=== PATIENT | female | born 1945 | race Caucasian/White ===

== ENCOUNTER → 2023-10-16 13:07 | Outpatient (REF) | payer MEDICARE, OTHER, SELFPAY | LOC: WDC 13:07 | PROVIDERS: ATTENDING PHYSICIAN Family Medicine | DX: Z12.31 Encounter for screening mammogram for malignant neoplasm of breast (principal) | CPT/HCPCS: 77063; 77067 ==

== ENCOUNTER → 2023-11-27 12:06 | Outpatient (REF) | payer MEDICARE, OTHER, SELFPAY ==
[2023-11-27 15:42] LABS: Urine Albumin Negative (Neg - Trace); Urine Bilirubin Negative (Negative); Urine Character Clear (Clear); Urine Color Yellow; Urine Glucose Negative (Negative); Urine Ketone Negative (Negative); Urine Leukocyte Negative (Negative); Urine Nitrite Negative (Negative); Urine Occult Blood Negative (Negative); Urine Specific Gravity 1.015 (<1.030); Urine Urobilinogen Negative (Neg - 1+)
[2023-11-27 15:48] LABS: % Basophils 1.1 % (0-2); % Eosinophils 2.7 % (0-6); % Immature Granulocytes 0.2 % (0-0.5); % Lymphocytes 22.3 % (20.5-51.1); % Monocytes 8.1 % (1.7-9.3); % Neutrophils 65.6 % (42.2-75.2); Absolute Basophils 0.1 10^3/uL (0-0.2); Absolute Eosinophils 0.2 10^3/uL (0-0.7); Absolute Lymphocytes 1.2 10^3/uL (1.2-3.4); Absolute Monocytes 0.5 10^3/uL (0.1-0.6); Absolute Neutrophils 3.6 10^3/uL (1.4-6.5); Hematocrit 42.5 % (37.0-47.0); Hemoglobin 13.8 g/dL (12.0-16.0); Mean Corp Hgb Conc. 32.5 g/dL (33.0-37.0); Mean Corpuscular Hgb 29.5 pg (27.0-31.0); Mean Corpuscular Volume 90.8 fL (81.0-99.0); Mean Platelet Volume 9.4 fL (7.4-10.4); Nucleated Red Blood Cells % 0 %; Platelet Count 268 10^3/uL (130-400); Red Blood Cell Count 4.68 10^6/uL (4.20-5.40); Red Cell Dist. Width 12.8 % (11.5-14.5); White Blood Cell Count 5.6 10^3/uL (4.8-10.8)
[2023-11-27 15:54] LABS: ALT (SGPT) 27 U/L (0-35); AST (SGOT) 36 U/L (14-36); Albumin 4.1 g/dl (3.5-5.0); Alkaline Phosphatase 69 U/L (38-126); Blood Urea Nitrogen 21 mg/dl (7-17); Carbon Dioxide 26 mmol/L (22-30); Chloride 103 mmol/L (98-107); Glucose 96 mg/dl (70-99); HDL Cholesterol 77 mg/dl; LDL Cholesterol, Calculated 73 mg/dl; Potassium 4.1 mmol/L (3.5-5.1); Sodium 134 mmol/L (135-145); Total Bilirubin 0.6 mg/dl (0.2-1.3); Total Cholesterol 183 mg/dl (50-199); Total Protein 6.2 g/dl (6.3-8.2); Triglyceride 169 mg/dl (10-149); Very Low Density Lipoprotein 33 mg/dl (0-30); eGFR > 60.00
[2023-11-27 16:11] LABS: Free T4 0.98 ng/dl (0.78-2.19); Vitamin D, 25-OH*** 35.8 ng/mL (30-80)
[2023-11-27 16:25] LABS: TSH 1.89 uIU/ml (0.47-4.68)
[2023-11-27 16:29] LABS: Ferritin 30.6 ng/ml (11.1-264.0)
[2023-11-29 17:13] LABS: Zinc 77.6 ug/dL (60.0-120.0)
== END ==
LOC: HWLAB 12:06
PROVIDERS: ATTENDING PHYSICIAN Dermatology; FAMILY PHYSICIAN Family Medicine
DX: Z00.01 Encounter for general adult medical examination with abnormal findings (principal); Z71.89 Other specified counseling; Z13.9 Encounter for screening, unspecified; E66.3 Overweight; M17.0 Bilateral primary osteoarthritis of knee; Z12.11 Encounter for screening for malignant neoplasm of colon; E78.5 Hyperlipidemia, unspecified; R53.82 Chronic fatigue, unspecified; R79.89 Other specified abnormal findings of blood chemistry; Z80.8 Family history of malignant neoplasm of other organs or systems; L57.8 Other skin changes due to chronic exposure to nonionizing radiation; D22.62 Melanocytic nevi of left upper limb, including shoulder; Z09 Encounter for follow-up examination after completed treatment for conditions other than malignant neoplasm; L65.9 Nonscarring hair loss, unspecified
CPT/HCPCS: 36415; 80053; 80061; 81003; 82306; 82728; 84439; 84443; 84630; 85025

== ENCOUNTER 2024-10-06 05:55 | Inpatient (IN) | payer MEDICARE, OTHER, SELFPAY ==
[2024-09-13 11:34] LABS: Hematocrit 40.8 % (37.0-47.0); Hemoglobin 13.7 g/dL (12.0-16.0); Mean Corp Hgb Conc. 33.6 g/dL (33.0-37.0); Mean Corpuscular Hgb 29.8 pg (27.0-31.0); Mean Corpuscular Volume 88.9 fL (81.0-99.0); Mean Platelet Volume 9.2 fL (7.4-10.4); Platelet Count 274 10^3/uL (130-400); Red Blood Cell Count 4.59 10^6/uL (4.20-5.40); Red Cell Dist. Width 12.6 % (11.5-14.5); White Blood Cell Count 5.3 10^3/uL (4.8-10.8)
[2024-09-13 12:25] LABS: ALT (SGPT) 28 U/L (0-35); AST (SGOT) 35 U/L (14-36); Alkaline Phosphatase 100 U/L (38-126); Blood Urea Nitrogen 26 mg/dl (7-17); Calcium 8.9 mg/dl (8.4-10.2); Carbon Dioxide 24 mmol/L (22-30); Chloride 104 mmol/L (98-107); Glucose 93 mg/dl (70-99); Potassium 4.5 mmol/L (3.5-5.1); Sodium 136 mmol/L (135-145); Total Bilirubin 0.6 mg/dl (0.2-1.3); Total Protein 6.1 g/dl (6.3-8.2); eGFR > 60.00
[2024-09-13 12:46] LABS: Glycohemoglobin (HgbA1c) 5.6 % (4.0-5.6)
[2024-09-13 12:53] VITALS: BMI 24.8
[2024-09-13 17:36] VITALS: BMI 24.8
[2024-10-06] VITALS (14 sets, daily range): BP systolic 108–142; BP diastolic 62–107; PULSE 90; O2SAT 96
[2024-10-06] MEDS: TYLENOL 650 MG PO ×5 (06:19→22:56)
[2024-10-06] MEDS: MOBIC 15 MG PO (06:20)
[2024-10-06] MEDS: NORMOSOL-R/PLASMALYTE-A 1000 IV ×2 (06:37→12:30)
[2024-10-06] MEDS: DILAUDID 0.25 MG IV (09:31)
[2024-10-06] MEDS: ROXICODONE 5 MG PO (09:55)
--- NOTE | 2024-10-06 12:24 | PTCARENOTE ---
pt admitted to 2S rm 2115 from the PACU at 1130. pt arrived via bed, awake and alert. pt oriented to room, bed controls, call muro and plan of care with verbalized understanding. admission database and assessment completed as documented.
telemetry placed and reading SR 80-90's. tolerating regular breakfast tray. denies Right hip discomfort. visitors at bedside. care ongoing.
--- NOTE | 2024-10-06 13:43 | W.PN.UPDATE ---
Update Note
Progress Note Update
R hip OA s/p R CATHY w/ Dr Nicolas 10/06/24
DVT prophylaxis - ASA, b/l venous foot pumps
Paroxysmal atrial fibrillation/atrial tachycardia on previous Holter monitoring - monitor on tele
- on ASA only
Chronic dyspnea on exertion - monitor O2
- IS
Balance difficulties - on fall precautions
Peripheral neuropathy - consider Gabapentin or Lyrica
Mild valvular disease
Palpitations
Probable irritable bowel syndrome
Degenerative disc disease
Skin cancer, status post multiple Mohs
Overactive bladder
Osteopenia
Hearing impairment
Remote history of tobacco abuse
[2024-10-06] MEDS: ANCEF 5 IV ×2 (15:03→21:00)
--- NOTE | 2024-10-06 15:12 | CM ---
Reviewed the chart notes and spoke with the patient at the bedside. The patient has a friend that rents the upper levels of a three story home with five steps to enter. There are bilateral hand rails on the steps. The patient has a cane, rolling
walker, grabber, shower seat, and raised toilet. The patient has not had VN or been to a SNF in the past. The patient confirmed her pharmacy of choice is [facility]. The patient will be doing outpatient therapy at [facility] in [place]. She will also be staying with two friends for the first couple of days. CM continues to be available to patient/family and is monitoring medical plan for needs at discharge.
Plan: Discharge to home when medically stable. No additional needs being identified at this time.
--- NOTE | 2024-10-06 17:36 | OR.RPT ---
Operative Report
Operative Report
Orthopaedic Surgery Operative Note
DATE OF OPERATION: 10/06/2024
PREOPERATIVE DIAGNOSES: Right hip osteoarthritis
POSTOPERATIVE DIAGNOSES: Same
OPERATION PERFORMED: Right total hip arthroplasty.
SURGEON: Nabil Nicolas MD
PHYSICS TECHNICAL OFFICER: Romulo Alba PA-C who helped with patient and limb positioning and retraction
ANESTHESIA: Spinal
COMPLICATIONS: None.
ESTIMATED BLOOD LOSS: 40 mL.
DRAINS: None
SPECIMEN: None
FINDINGS: Full thickness degenerative changes to the femoral head and acetabulum
IMPLANTS:
Jose Roberto Trilogy Acetabular Shell, cluster hole, size 50
Jose Roberto Trilogy Highly Crosslinked PE Liner, neutral
Jose Roberto Heritage stem, size 11 with standard offset with distal centralizer
DJO bone cement; large cement restrictor
Biolox Ceramic Head, size 36mm +0
INDICATIONS: The patient presented to my office with debilitating right hip pain due to osteoarthritis. We reviewed the natural history of this problem, as well as the risks, benefits, and alternatives of various treatment options. The patient
exhausted all nonoperative treatment options and wished to proceed with hip replacement surgery. The patient understood the risks which included, but were not limited to, bleeding, infection, failure to relieve pain, more pain than preop, damage to
blood vessels and nerves, need for reoperation, mechanical failure of the implants, wound healing problems, stiffness, instability, blood clot, pulmonary embolism, myocardial infarction, pneumonia, arrhythmia, CVA, and . The patient accepted
these risks and wished to proceed. All questions were answered, and informed consent was obtained.
PROCEDURE IN DETAIL: The patient was identified in the preoperative holding area. The right hip was identified as the operative site. The patient was taken in the operating room and transferred to the operative table. Spinal anesthesia was
performed. IV antibiotics and tranexamic acid were administered. The patient was placed in the lateral position with Stulberg hip positioners. Axillary roll was placed. The down leg was well padded. All bony prominences were well padded. The
operative limb was prepped and draped in the usual sterile fashion.
Time out was performed. A posterolateral approach to the hip was used. The skin incision was centered over the greater trochanter. This was taken down sharply through subcutaneous tissues. Meticulous hemostasis was achieved throughout the case with
electrocautery. We split the fascia troy in line with skin incision. I split the gluteus steve bluntly. We cauterized all crossing vessels as we split it. I palpated the sciatic nerve and made sure it was well posterior in the operative field. It
was protected throughout the case.
I performed a partial bursectomy to identify the short external rotators. The gluteus medius and minimus were identified and retracted anteriorly. I incised the piriformis tendon and conjoint tendon at their insertions. These were tagged for later
repair. I then performed a trapezoidal capsulotomy. The edges were tagged for later repair. I referenced the cut edge of the capsular flap to 2 fixed points on the greater trochanter for assistance with recreation of limb length and offset. I then
dislocated the hip posteriorly. I performed a femoral neck osteotomy approximately 10 mm above the lesser trochanter, as per preoperative templating. The femoral head measured 46 mm in outer diameter. The distance between the neck cut and the center
of the femoral head was measured to be 35mm. I placed a curve hohmann retractor over the anterior lip of the acetabulum between the labrum and the anterior hip capsule. A second retractor was placed inferiorly just distal to the transverse
acetabular ligament. Circumferential view of the acetabulum was achieved. I incised the labrum and pulvinar with electrocautery. I started with a 47 mm reamer and reamed down to the medial wall. I then sequentially reamed up to a 47mm reamer. This
gave a nice bed of bleeding bone with excellent column support anteriorly and posteriorly. I impacted the acetabular shell in approximately 40 degrees of abduction and 20 degrees of anteversion. I matched the anteversion of the transverse acetabular
ligament. I also made sure that the anterior rim of the socket was not proud of the anterior wall to minimize the chance of iliopsoas tendinitis. I confirmed the cup was well-seated. I then impacted a neutral liner and confirmed it was well seated
with the locking mechanism.
Attention was turned to the femur. Box osteotome and Charnley awe were used to open the canal. The femur was sequentially broached to size 11 which had appropriate fit and fill. A trial head was placed with standard offset neck and the hip was
reduced. Leg length and offset were checked and found to be appropriate. The hip was taken through complete range of motion and found to be stable in extension, the position of sleep, and at 90 degrees of flexion and internal rotation. The distance
between the neck cut and center of femoral head was 37.5mm.
Trials were removed and the femoral canal was prepared with irrigation and ribbon gauze packing sequentially. A cement restrictor was placed into the femoral canal 1cm distal to the tip of the femoral stem. This was measured off the femoral stem.
Once the femoral canal was prepared, the cement was mixed. Once doughy in consistency, the cement was pressurized into the canal with a cement gun. The stem was then carefully inserted into the canal with care to minimize rotation or micromotion.
Excess cement was removed. Once the cement was polymerized, the joint was irrigated copiously. The acetabular component was inspected to be free of cement particles and other debris. The final head was impacted onto clean and dry trunion. Leg length
and stability were checked again and found to be acceptable. The sciatic nerve was inspected and noted to be free of tension and uninjured.
A dilute betadine soak was performed for approximately 3 minutes, and then the hip was copiously irrigated. I repaired the capsule, piriformis, and conjoint tendon with #2 Ethibond to drill holes in the greater trochanter. Local anesthetic was
injected. The fascia troy was closed with #1 PDS in running fashion. The subcutaneous tissues were closed with 2-0 PDS in running fashion. The skin was reapproximated with 3-0 Monocryl subcuticular suture. I placed a Prineo dressing followed by a
Mepilex Ag dressing. The patient awoke from anesthesia without difficulty. Sponge and instrument counts were correct x2 at the end of the case. Leg lengths were checked on the hospital bed and noted to be equal.
I was present and participated in the entire procedure. The patient was sent to the recovery room in stable condition.
Bradly Nicolas MD
[2024-10-06] MEDS: ASPIRIN 325 MG PO (17:51)
[2024-10-06] MEDS: TORADOL 10 MG IV (17:52)
[2024-10-06] MEDS: COLACE 100 MG PO (21:00)
[2024-10-06] MEDS: ROXICODONE 10 MG PO (21:00)
[2024-10-06] MEDS: SENOKOT PO (21:01)
[2024-10-06] MEDS: BACTROBAN 2% OINTMENT 1 APPLIC NASAL (21:01)
[2024-10-06] MEDS: PEPCID 20 MG PO (21:01)
[2024-10-07 03:26] VITALS: BP 113/66
[2024-10-07] MEDS: TYLENOL 650 MG PO ×2 (04:21→08:22)
[2024-10-07] MEDS: ROXICODONE 5 MG PO (06:22)
[2024-10-07] MEDS: BACTROBAN 2% OINTMENT 1 APPLIC NASAL (08:13)
[2024-10-07] MEDS: SENOKOT 17.2 MG PO (08:17)
[2024-10-07] MEDS: ASPIRIN 325 MG PO (08:17)
[2024-10-07] MEDS: COLACE 100 MG PO (08:17)
[2024-10-07] MEDS: MOBIC 15 MG PO (08:17)
[2024-10-07 08:23] VITALS: BP 130/62
--- NOTE | 2024-10-07 08:33 | W.PN.ORTHO ---
Today's Communication / Plan
-
Await PT and OT recs.
D/c later today if remaining clinically stable.
Assessment
.
Distal Motor Intact: Yes
Dressing:
Clean, dry and intact.
Assessment:
R hip OA s/p R CATHY w/ Dr Nicolas 10/06/24
DVT prophylaxis - ASA, b/l venous foot pumps
Paroxysmal atrial fibrillation/atrial tachycardia on previous Holter monitoring - rhythm stable on tele
- on ASA only
Chronic dyspnea on exertion - O2 stable on RA
- IS
Balance difficulties - on fall precautions
Peripheral neuropathy - Gabapentin or Lyrica not needed at this time
Mild valvular disease
Palpitations
Probable irritable bowel syndrome
Degenerative disc disease
Skin cancer, status post multiple Mohs
Overactive bladder
Osteopenia
Hearing impairment
Remote history of tobacco abuse
Plan
.
Surgery / Date: James MORGAN w/ Dr Nicolas 10/06/24
DVT Prophylaxis: Aspirin
Activity:
Out of bed.
PT/OT
Discharge Plan: Home w/ Outpatient PT
Subjective
.
.:
Patient resting comfortably in bed.
Pt overall happy w/ R hip pain control.
Denies any new significant complaints.
Eager for potential d/c today.
Vital Signs and Labs
.
Vital Signs and Labs:
Lab Results
09/13/24 11:02
09/13/24 11:02
Temp Pulse Resp BP Pulse Ox
97.5 F 72 20 113/66 98
10/07/24 03:26 10/07/24 03:26 10/07/24 03:26 10/07/24 03:26 10/07/24 03:26
Non-invasive Hgb result: 15
Physical Exam
-
HEENT: No pallor, cyanosis, or jaundice. Throat clear.
NECK: Supple. No JVD.
RESPIRATORY: Lungs clear to auscultation.
CVS: S1, S2 normal. RRR.�
ABDOMEN: Soft, non-tender. No distension.
EXTREMITIES: Strength equal, no calf pain with palpation/dorsiflexion. Calves soft.
[employer]: AOx3. No focal deficits. washer and crusher tender grossly intact
[2024-10-07 09:54] VITALS: BP 126/68; BP 99/53; PULSE 72; O2SAT 97
--- NOTE | 2024-10-07 09:55 | W.DS.TRANS ---
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
-
Discharge Instructions:
Sleep Apnea Risk Low
Discharge Diagnosis/Procedures R hip OA s/p R CATHY w/ Dr Nicolas 10/06/24
Diet Regular
Activity As tolerated,With Walker
Driving Restrictions Not until seen by your Dr
Bathing Restrictions OK to Shower
Other Services PT
Wound Care Leave dressing on until see by surgeon's office
for follow-up in 2 weeks
Instructions:
Stand-Alone Forms: Total Hip/Knee Replacement D/C
Changes to Home Medications: Yes
Discharge Medications:
DC Medications w/original date entered in [facility]
magnesium 200 mg tablet 400 mg PO HS 09/12/24
mupirocin 2 % topical ointment 1 applic intranasal BID #1 tube 09/13/24
aspirin 325 mg tablet 325 mg PO DAILY #30 tabs 10/06/24
docusate sodium 100 mg capsule 100 mg PO BID #30 caps 10/06/24
famotidine 20 mg tablet 20 mg PO HS #30 tabs 10/06/24
meloxicam 15 mg tablet 15 mg PO DAILY #14 tabs 10/06/24
ondansetron HCl 4 mg tablet 4 mg PO Q6H PRN nausea and vomiting #30 tabs 10/06/24
oxycodone 5 mg tablet 5 - 10 mg (1 - 2 x 5 mg) PO Q6H PRN moderate-severe pain #30 tabs 10/06/24
sennosides 8.6 mg tablet (Rosi-roxy) 17.2 mg (2 x 8.6 mg) PO BID #30 tabs 10/06/24
acetaminophen 650 mg tablet,extended release (Tylenol Arthritis Pain) 1,300 mg (2 x 650 mg) PO Q8H #60 tabs 10/07/24
Home Medication Changes
aspirin 325 mg tablet 325 mg PO DAILY #30 tabs 10/06/24
docusate sodium 100 mg capsule 100 mg PO BID #30 caps 10/06/24
famotidine 20 mg tablet 20 mg PO HS #30 tabs 10/06/24
meloxicam 15 mg tablet 15 mg PO DAILY #14 tabs 10/06/24
ondansetron HCl 4 mg tablet 4 mg PO Q6H PRN nausea and vomiting #30 tabs 10/06/24
oxycodone 5 mg tablet 5 - 10 mg (1 - 2 x 5 mg) PO Q6H PRN moderate-severe pain #30 tabs 10/06/24
sennosides 8.6 mg tablet (Rosi-roxy) 17.2 mg (2 x 8.6 mg) PO BID #30 tabs 10/06/24
acetaminophen 650 mg tablet,extended release (Tylenol Arthritis Pain) 1,300 mg (2 x 650 mg) PO Q8H #60 tabs 10/07/24
Pending Results: No
[2024-10-07 11:14] VITALS: BP 117/64; PULSE 70; O2SAT 99
--- NOTE | 2024-10-07 11:18 | CM ---
Reviewed the chart notes. IMM reviewed. Patient for discharge to home today with outpatient therapy scheduled. Friend to transport.
[2024-10-07 11:30] VITALS: BP 122/65
== END 2024-10-07 12:02 | disposition home or self-care (01) | DRG 470 ==
LOC: 2 SOUTH 05:55
PROVIDERS: ADMITTING PHYSICIAN Orthopaedic Surgery; FAMILY PHYSICIAN Family Medicine
PROC: 0SR9049 Replacement of Right Hip Joint with Ceramic on Polyethylene Synthetic Substitute, Cemented, Open Approach (ICD-10-PCS; 2024-10-06)
DX: M16.11 Unilateral primary osteoarthritis, right hip (principal); I47.19 Other supraventricular tachycardia; I48.0 Paroxysmal atrial fibrillation; R06.09 Other forms of dyspnea; K58.9 Irritable bowel syndrome, unspecified; G62.9 Polyneuropathy, unspecified; N32.81 Overactive bladder; M85.80 Other specified disorders of bone density and structure, unspecified site; H91.90 Unspecified hearing loss, unspecified ear; Z87.891 Personal history of nicotine dependence; Z85.828 Personal history of other malignant neoplasm of skin; Z88.2 Allergy status to sulfonamides; Z98.42 Cataract extraction status, left eye; Z98.41 Cataract extraction status, right eye
CPT/HCPCS: 36415; 73502; 80053; 83036; 85027; 87070; 93005; 97110; 97116; 97163; 97167; 97530; 97535; C1713; C1776

== ENCOUNTER → 2025-02-23 18:03 | Outpatient (REF) | payer MEDICARE, OTHER, SELFPAY | LOC: WDC 18:03 | PROVIDERS: ATTENDING PHYSICIAN Family Medicine | DX: Z12.31 Encounter for screening mammogram for malignant neoplasm of breast (principal) | CPT/HCPCS: 77063; 77067 ==

== ENCOUNTER → 2025-04-27 08:36 | Outpatient (REF) | payer MEDICARE, OTHER, SELFPAY | LOC: RAD 08:36 | PROVIDERS: ATTENDING PHYSICIAN Family Medicine | DX: M81.0 Age-related osteoporosis without current pathological fracture (principal) | CPT/HCPCS: 77080 ==